=== PATIENT | female | born 1945 | race Caucasian/White ===

== ENCOUNTER 2018-05-26 18:20 | Inpatient (IN) | payer MEDICARE, MEDICAID ==
[~2018-05-26] VITALS: Ht 160 cm; Wt 49.9 kg
[2018-05-26] MEDS ORDERED: NITROGLYCERIN 0.4MG TABLET SL SL PRN (19:30)
[2018-05-26 19:45] LABS: BASOPHILS % 0.7 % (0.0-2.0); EOSINOPHILS % 0.2 % (0.0-5.0); HEMATOCRIT. 33.1 % (36.0-48.0); HEMOGLOBIN. 11.3 g/dL (12.0-16.0); LYMPHOCYTES % 15.7 % (20.0-50.0); MEAN CORPUSCULAR HEMOGLOBIN 29.2 pg (28.0-32.0); MEAN CORPUSCULAR VOLUME 85.3 fL (81.0-99.0); MEAN PLATELET VOLUME 7.1 fl (7.4-10.4); MONOCYTES % 7.2 % (2.0-8.0); NEUTROPHILS % 76.2 % (40.0-76.0); PLATELET 300 x1000/uL (130-400); RED BLOOD CELL COUNT 3.88 mill/uL (4.2-5.4); RED CELL DISTRIBUTION WIDTH 12.2 % (11.6-14.6)
[2018-05-26 19:49] LABS: CHLORIDE 101 mEq/L (98-107)
[2018-05-26 19:55] LABS: D-DIMER 0.41 mg/L FEU (<0.50); INR 1.1; PARTIAL THROMBOPLASTIN TIME 31.3 sec (23.4-31.0); PROTHROMBIN TIME 10.9 sec (9.6-11.0)
[2018-05-26 23:00] VITALS: BP 145/56
[2018-05-27] MEDS ORDERED: DIPHENHYDRAMINE 50MG/ML VIAL IV PRN
[2018-05-27] MEDS ORDERED: REGADENOSON 0.4 MG/5 ML IV SCH
[2018-05-27] MEDS ORDERED: CLONIDINE 0.1MG TABLET PO PRN
[2018-05-27] MEDS ORDERED: ACETAMINOPHEN 325MG TABLET PO PRN
[2018-05-27] MEDS ORDERED: MAGNESIUM/ALUMINUM HYDROXIDE/SIMETHICONE 30ML UDC PO PRN
[2018-05-27] MEDS ORDERED: ONDANSETRON HCL 4MG/2ML INJ IV PRN
[2018-05-27] MEDS ORDERED: KETOROLAC 30MG/ML VIAL IV PRN
[2018-05-27] MEDS ORDERED: TEMAZEPAM 15MG CAPSULE PO PRN
[2018-05-27] MEDS ORDERED: LORAZEPAM 0.5MG TABLET PO PRN
[2018-05-27 01:16] VITALS: BP 145/56
[2018-05-27 04:00] VITALS: BP 137/55
[2018-05-27] MEDS: SODIUM CHLORIDE 0.9% INJ 3ML FLUSH IVF SCH ×2 (06:11→14:49)
[2018-05-27 07:49] LABS: LDL CHOLESTEROL 75 mg/dL (5-100)
[2018-05-27 07:51] LABS: HDL CHOLESTEROL 36 mg/dL (40-59)
[2018-05-27 08:00] VITALS: BP 120/50
[2018-05-27 12:00] VITALS: BP 139/51
[2018-05-27 15:03] VITALS: BP 139/51
== END 2018-05-27 16:14 | disposition home or self-care (01) | DRG 206 ==
LOC: ER 18:20 → 7WST 20:44 → ENRESERV 21:56
PROVIDERS: ADMIT Internal Medicine; ATTEND Internal Medicine
DX: M94.0 Chondrocostal junction syndrome [Tietze] (principal); I24.9 Acute ischemic heart disease, unspecified; I10 Essential (primary) hypertension; F41.9 Anxiety disorder, unspecified; Z90.12 Acquired absence of left breast and nipple; Z85.3 Personal history of malignant neoplasm of breast
CPT/HCPCS: 36415; 71045; 80061; 83880; 84484; 85379; 93005; 93306; 99285

== ENCOUNTER 2021-06-28 19:52 | Inpatient (IN) | payer MEDICARE, MEDICAID ==
[~2021-06-28] VITALS: Ht 157.5 cm; Wt 51.3 kg
[2021-06-28] MEDS ORDERED: NITROGLYCERIN 0.4MG TABLET SL SL PRN (20:30)
[2021-06-28] MEDS ORDERED: ASPIRIN 81MG TABLET PO ONE (20:30)
[2021-06-28 21:54] LABS: BASOPHILS % 0.1 % (0.0-2.0); EOSINOPHILS % 0.1 % (0.0-5.0); HEMATOCRIT. 38.6 % (36.0-48.0); LYMPHOCYTES % 13.3 % (20.0-50.0); MEAN CORPUSCULAR HEMOGLOBIN 28.9 pg (28.0-32.0); MEAN CORPUSCULAR VOLUME 85.8 fL (81.0-99.0); MEAN PLATELET VOLUME 8.2 fl (7.4-10.4); MONOCYTES % 4.7 % (2.0-8.0); NEUTROPHILS % 81.8 % (40.0-76.0); PLATELET 219 x1000/uL (130-400); RED CELL DISTRIBUTION WIDTH 12.8 % (11.6-14.6)
[2021-06-28 21:56] LABS: CHLORIDE 94 mEq/L (98-107)
[2021-06-29] VITALS (7 sets, daily range): BP systolic 140–169; BP diastolic 56–68
[2021-06-29] MEDS ORDERED: ATEN50TA PO (09:58)
[2021-06-29] MEDS ORDERED: DOCUSATE SODIUM 100MG CAPSULE PO PRN (11:00)
[2021-06-29] MEDS ORDERED: NA PHOS,M-B/NA PHOS,DI-BA ENEMA 118ML PR PRN (11:00)
[2021-06-29] MEDS ORDERED: GUAIFENESIN 200MG/10ML SUGAR FREE UDC PO PRN (11:00)
[2021-06-29] MEDS ORDERED: LORAZEPAM 0.5MG TABLET PO PRN (11:00)
[2021-06-29] MEDS ORDERED: DIPHENHYDRAMINE 50MG/ML VIAL IV PRN (11:00)
[2021-06-29] MEDS ORDERED: ACETAMINOPHEN 325MG TABLET PO PRN (11:00)
[2021-06-29] MEDS ORDERED: MAGNESIUM/ALUMINUM HYDROXIDE/SIMETHICONE 30ML UDC PO PRN (11:00)
[2021-06-29] MEDS ORDERED: ONDANSETRON HCL 4MG/2ML INJ IV PRN (11:00)
[2021-06-29] MEDS ORDERED: IPRATROPIUM/ALBUTEROL 0.5-3(2.5)MG/3ML NEB NEB PRN (11:00)
[2021-06-29] MEDS ORDERED: HYDROCODONE/ACETAMINOPHEN 5/325MG TABLET PO PRN (11:00)
[2021-06-29] MEDS ORDERED: ACETAMINOPHEN 650MG SUPP PR PRN (11:00)
[2021-06-29] MEDS: ASPIRIN 81MG EC TABLET PO SCH (12:24)
[2021-06-29] MEDS: ENOXAPARIN 40MG/0.4ML SYR SUBCUT SCH (12:24)
[2021-06-29] MEDS: SODIUM CHLORIDE 0.9% 1,000 ML IV SCH (13:33)
[2021-06-29 16:42] LABS: INR 1.1; PROTHROMBIN TIME 11.3 sec (9.6-11.0)
[2021-06-29 16:48] LABS: CHLORIDE 101 mEq/L (98-107)
[2021-06-29 17:03] LABS: CREATINE KINASE 30 IU/L (26-192); CREATINE KINASE MB FRACTION < 1.0 ng/mL (0.5-3.6)
[2021-06-29] MEDS: HYDRALAZINE 20MG/ML VIAL IV PRN (19:11)
[2021-06-29] MEDS ORDERED: FAMOTIDINE 20MG TABLET PO SCH (21:00)
[2021-06-30] VITALS: BP 128/49
[2021-06-30 01:06] LABS: BASOPHILS % 0.3 % (0.0-2.0); EOSINOPHILS % 0.1 % (0.0-5.0); HEMATOCRIT. 36.5 % (36.0-48.0); HEMOGLOBIN. 12.7 g/dL (12.0-16.0); LYMPHOCYTES % 22.5 % (20.0-50.0); MEAN CORPUSCULAR HEMOGLOBIN 29.4 pg (28.0-32.0); MEAN CORPUSCULAR VOLUME 84.8 fL (81.0-99.0); MEAN PLATELET VOLUME 8.6 fl (7.4-10.4); MONOCYTES % 6.7 % (2.0-8.0); NEUTROPHILS % 70.4 % (40.0-76.0); PLATELET 195 x1000/uL (130-400); RED BLOOD CELL COUNT 4.31 mill/uL (4.2-5.4); RED CELL DISTRIBUTION WIDTH 12.7 % (11.6-14.6)
[2021-06-30 01:23] LABS: CREATINE KINASE 34 IU/L (26-192); CREATINE KINASE MB FRACTION < 1.0 ng/mL (0.5-3.6)
[2021-06-30 01:27] LABS: CHLORIDE 107 mEq/L (98-107)
[2021-06-30] MEDS: SODIUM CHLORIDE 0.9% 1,000 ML IV SCH (03:45)
[2021-06-30] MEDS: HYDRALAZINE 20MG/ML VIAL IV PRN (03:54)
[2021-06-30 04:00] VITALS: BP 162/62
[2021-06-30 06:42] LABS: BASOPHILS % 0.3 % (0.0-2.0); EOSINOPHILS % 0.1 % (0.0-5.0); HEMATOCRIT. 39.4 % (36.0-48.0); HEMOGLOBIN. 13.6 g/dL (12.0-16.0); LYMPHOCYTES % 19.2 % (20.0-50.0); MEAN CORPUSCULAR HEMOGLOBIN 29.4 pg (28.0-32.0); MEAN CORPUSCULAR VOLUME 85.3 fL (81.0-99.0); MEAN PLATELET VOLUME 8.5 fl (7.4-10.4); MONOCYTES % 6.9 % (2.0-8.0); NEUTROPHILS % 73.5 % (40.0-76.0); PLATELET 206 x1000/uL (130-400); RED BLOOD CELL COUNT 4.62 mill/uL (4.2-5.4); RED CELL DISTRIBUTION WIDTH 12.8 % (11.6-14.6)
[2021-06-30 07:54] LABS: CHLORIDE 107 mEq/L (98-107)
[2021-06-30 08:00] VITALS: BP 152/64
[2021-06-30 08:11] LABS: HDL CHOLESTEROL 49 mg/dL (40-59); LDL CHOLESTEROL 119 mg/dL (5-100); T4 FREE 1.38 ng/dL (0.76-1.46)
[2021-06-30] MEDS: ENOXAPARIN 40MG/0.4ML SYR SUBCUT SCH (09:12)
[2021-06-30] MEDS: ASPIRIN 81MG EC TABLET PO SCH (09:13)
[2021-06-30] MEDS ORDERED: AMLO5TAB4 MT (11:53)
[2021-06-30] MEDS ORDERED: FAMO-135 PO (11:53)
[2021-06-30] MEDS ORDERED: ASPI-1497 MT (11:53)
[2021-06-30 12:00] VITALS: BP 124/62
[2021-06-30] MEDS ORDERED: AMLODIPINE 5MG TABLET PO SCH (12:00)
[2021-06-30 14:59] VITALS: BP 124/62
[2021-06-30 19:26] LABS: CLARITY URINE CLEAR (CLEAR); COLOR URINE YELLOW (YELLOW); KETONES URINE NEGATIVE (NEGATIVE); LEUKOCYTE ESTERASE URINE 1+ (NEGATIVE); NITRITE URINE NEGATIVE (NEGATIVE); OCCULT BLOOD URINE NEGATIVE (NEGATIVE); PROTEIN URINE NEGATIVE (NEGATIVE); SPECIFIC GRAVITY URINE 1.007 (1.005-1.030); UROBILINOGEN URINE 0.2 E.U./dL (0.2-1.0)
[2021-06-30] MEDS ORDERED: ATORVASTATIN CALCIUM 10MG TABLET PO SCH (21:00)
== END 2021-06-30 16:24 | disposition home or self-care (01) | DRG 880 ==
LOC: ER 19:52 → 6WST 06-29 04:29 → ENRESERV 06-29 07:12
PROVIDERS: ADMIT Internal Medicine; ATTEND Internal Medicine
DX: F41.0 Panic disorder [episodic paroxysmal anxiety] (principal); E87.1 Hypo-osmolality and hyponatremia; R00.1 Bradycardia, unspecified; I16.0 Hypertensive urgency; I10 Essential (primary) hypertension; G90.8 Other disorders of autonomic nervous system; E78.5 Hyperlipidemia, unspecified; Z90.12 Acquired absence of left breast and nipple; Z85.3 Personal history of malignant neoplasm of breast; Z79.899 Other long term (current) drug therapy; Z90.710 Acquired absence of both cervix and uterus
CPT/HCPCS: 36415; 71045; 80048; 80053; 80061; 81003; 82550; 82553; 83735; 83880; 84439; 84443; 84484; 85025; 87077; 93005; 93306; 93880; 93970; 97162; 99291; J0360; J1650; J7030

== ENCOUNTER 2024-07-30 16:03 | Emergency (ER) | payer BC, MEDICAID ==
[~2024-07-30] VITALS: Ht 154.9 cm; Wt 68.0 kg
[~2024-07-30 16:03] MED LIST: AMLO5TAB5 MT; ASPI-1497 MT; FAMO-135 PO
[2024-07-30 16:07] VITALS: O2SAT 100
[2024-07-30 18:23] LABS: BASOPHILS % 0.5 % (0.0-2.0); EOSINOPHILS % 0.3 % (0.0-5.0); HEMATOCRIT. 38.4 % (36.0-48.0); HEMOGLOBIN. 12.6 g/dL (12.0-16.0); LYMPHOCYTES % 25.8 % (20.0-50.0); MEAN CORPUSCULAR HEMOGLOBIN 28.5 pg (28.0-32.0); MEAN CORPUSCULAR HGB CONC 32.9 g/dL (31.0-37.0); MEAN CORPUSCULAR VOLUME 86.8 fL (81.0-99.0); MEAN PLATELET VOLUME 8.1 fl (7.4-10.4); MONOCYTES % 6.4 % (2.0-8.0); PLATELET 213 x1000/uL (130-400); RED BLOOD CELL COUNT 4.42 mill/uL (4.2-5.4); RED CELL DISTRIBUTION WIDTH 13.1 % (11.6-14.6); WHITE BLOOD COUNT 6.8 x1000/uL (4.5-11.0)
[2024-07-30 18:30] LABS: CHLORIDE 104 mEq/L (98-107); POTASSIUM 3.9 mEq/L (3.5-5.1); SODIUM 139 mEq/L (136-145)
[2024-07-30 18:31] LABS: CARBON DIOXIDE 26 mEq/L (21-32)
[2024-07-30 18:36] LABS: CREATININE 0.8 mg/dL (0.6-1.0); GLUCOSE 104 mg/dL (70-105); UREA NITROGEN BLOOD 16 mg/dL (9-23)
[2024-07-30 18:37] LABS: PARTIAL THROMBOPLASTIN TIME 26.9 sec (23.4-31.0); PROTHROMBIN TIME 10.7 sec (9.6-11.0); TROPONIN I HIGH SENSITIVITY 5 ng/L (3.0-34)
[2024-07-30] MEDS ORDERED: IBUP-2029 MT (18:49)
[2024-07-30 19:20] VITALS: BP 185/71; PULSE 60; RESP 16; TEMP 36.8; O2SAT 100
[2024-07-30] MEDS: ASPIRIN 81MG EC TABLET PO ONE (19:20)
[2024-07-30] MEDS: CLONIDINE 0.1MG TABLET PO ONE (19:20)
== END 2024-07-30 19:20 | disposition home or self-care (01) ==
LOC: ER 16:03
DX: R07.89 Other chest pain (principal); I10 Essential (primary) hypertension; R06.02 Shortness of breath; Z79.82 Long term (current) use of aspirin; Z79.899 Other long term (current) drug therapy; Z90.710 Acquired absence of both cervix and uterus; Z90.12 Acquired absence of left breast and nipple
CPT/HCPCS: 36415; 71045; 80048; 83880; 84484; 85025; 85379; 93005; 99285